=== PATIENT | female | born 1960 | race African-American/Black ===

== ENCOUNTER 2017-05-18 10:55 | Inpatient (IN) | payer OTHER, MEDICARE ==
[~2017-05-18] VITALS: Ht 162.6 cm; Wt 87.9 kg
[~2017-05-18 10:55] MED LIST: FOLI1TAB4 PO; VITA100T2 PO
[2017-05-18 11:00] VITALS: BP 141/77; PULSE 104; RESP 18; TEMP 98.1; O2SAT 98
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
[2017-05-18 12:56] LABS: AUTOMATED NEUTROPHIL # 2.6 TH/MM3 (1.8-7.7); BASOPHIL # 0.1 TH/MM3 (0-0.2); BASOPHIL % 1.2 % (0.0-2.0); EOSINOPHIL % 0.6 % (0.0-4.0); HEMATOCRIT 36.7 % (35.0-46.0); HEMO FLAGS DIFF FINAL; LYMPH % 35.6 % (9.0-44.0); LYMPHOCYTE # 1.6 TH/MM3 (1.0-4.8); MEAN CELL VOLUME 98.7 FL (80.0-100.0); MEAN CORPUSCULAR HEMOGLOBIN 32.6 PG (27.0-34.0); MONO % 6.2 % (0.0-8.0); NEUT % 56.4 % (16.0-70.0); PLATELET COUNT 297 TH/MM3 (150-450); RED BLOOD COUNT 3.72 MIL/MM3 (4.00-5.30); RED CELL DISTRIBUTION WIDTH 13.9 % (11.6-17.2); WHITE BLOOD COUNT 4.6 TH/MM3 (4.0-11.0)
[2017-05-18 13:18] LABS: ANION GAP 12 MEQ/L (5-15); AST (GOT) 44 U/L (15-37); BICARBONATE 21.3 MEQ/L (21.0-32.0); BLOOD UREA NITROGEN 18 MG/DL (7-18); CHLORIDE 106 MEQ/L (98-107); GLOMERULAR FILTRATION RATE 99 ML/MIN (>89); POTASSIUM 4.1 MEQ/L (3.5-5.1); SODIUM (NA) 139 MEQ/L (136-145)
[2017-05-18 13:22] LABS: ALKALINE PHOSPHATASE 67 U/L (45-117); ALT (GPT) 43 U/L (10-53); TOTAL BILIRUBIN ADULT 0.5 MG/DL (0.2-1.0)
[2017-05-18 13:27] LABS: ALCOHOL 135 MG/DL (0-5)
[2017-05-18 15:15] VITALS: BP 167/92; PULSE 105; RESP 20; TEMP 98.9; O2SAT 100
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
[2017-05-18 18:08] VITALS: BP 155/84; PULSE 94; RESP 18; TEMP 97.9; O2SAT 99
[2017-05-19 05:54] VITALS: BP 166/94; PULSE 74; RESP 18; TEMP 98.3; O2SAT 98
[2017-05-19] MEDS: FOLIC ACID 1 MG TAB PO SCH (08:55)
[2017-05-19] MEDS: THIAMINE HCL 100 MG TAB PO SCH (08:55)
--- NOTE | 2017-05-19 15:35 | HHI.PYPN ---
Subjective Remarks Patient seen, chart reviewed and case discussed with nursing. She remains easily agitated and appears paranoid. Review of Systems Except as stated in HPI: all other systems reviewed are Neg Objective Alert: Yes [place]: Person, Place Mood: Anxious Affect: Blunted Memory Intact: Immediate, Recent, Remote Hallucinations: Other Delusions: Yes Delusion Type: Paranoid, Other Suicidal: Ideation (no) Homicidal: Ideation (no) Insight/Judgment Impaired Vitals/IOs Vital Signs Date Time Temp Pulse Resp B/P (MAP) Pulse Ox O2 Delivery O2 Flow Rate FiO2 05/19/17 05:54 98.3 74 18 166/94 (118) 98 05/18/17 15:15 Room Air Intake and Output 05/19/17 05/19/17 05/19/17 07:59 15:59 23:59 Intake Total 480 ml Balance 480 ml Assessment & Plan Problem List: (1) Alcohol abuse with intoxication ICD Codes: F10.129 - Alcohol abuse with intoxication, unspecified (2) Paranoid type schizophrenia, chronic state ICD Codes: F20.0 - Paranoid schizophrenia Assessment & Plan Estimated LOS: days continue medication regimen started by admitting physician. Justification for Cont. Inpt. Unable to care for self. Request HC Surrog/Guard Advoc?: No Darvin Richter MD May 19, 2017 15:35
--- NOTE | 2017-05-19 15:59 | HHI.PYPN ---
Subjective Remarks Patient seen, chart reviewed and labs reviewed. Case discussed with nursing staff. She is somewhat more calm today. Remains paranoid. Review of Systems Except as stated in HPI: all other systems reviewed are Neg Objective Alert: Yes [place]: Person, Place Mood: Anxious Affect: Blunted Memory Intact: Immediate, Recent, Remote Hallucinations: Other Delusions: Yes Delusion Type: Paranoid, Other Suicidal: Ideation (no) Homicidal: Ideation (no) Insight/Judgment Impaired Vitals/IOs Vital Signs Date Time Temp Pulse Resp B/P (MAP) Pulse Ox O2 Delivery O2 Flow Rate FiO2 05/19/17 05:54 98.3 74 18 166/94 (118) 98 05/18/17 15:15 Room Air Intake and Output 05/19/17 05/19/17 05/19/17 07:59 15:59 23:59 Intake Total 480 ml Balance 480 ml Assessment & Plan Problem List: (1) Alcohol abuse with intoxication ICD Codes: F10.129 - Alcohol abuse with intoxication, unspecified (2) Paranoid type schizophrenia, chronic state ICD Codes: F20.0 - Paranoid schizophrenia Assessment & Plan Estimated LOS: days will continue current medication regimen and evaluate for efficacy versus tolerability. Justification for Cont. Inpt. Unable to care for self at this time. Request HC Surrog/Guard Advoc?: No Darvin Richter MD May 19, 2017 15:59
[2017-05-19 18:20] VITALS: BP 164/77; PULSE 72; RESP 16; TEMP 97.7; O2SAT 100
[2017-05-19] MEDS: risperiDONE 1 MG TAB PO SCH (22:11)
[2017-05-20 06:17] VITALS: BP 134/72; PULSE 73; RESP 17; TEMP 97.6; O2SAT 100
[2017-05-20] MEDS: FOLIC ACID 1 MG TAB PO SCH (09:05)
[2017-05-20] MEDS: risperiDONE 1 MG TAB PO SCH ×2 (09:05→21:44)
[2017-05-20] MEDS: THIAMINE HCL 100 MG TAB PO SCH (09:05)
[2017-05-20] MEDS ORDERED: LORazepam 2 MG TAB PO PRN (13:00)
[2017-05-20] MEDS ORDERED: LORazepam 1 MG TAB PO PRN (13:00)
[2017-05-20] MEDS ORDERED: LORazepam 2 MG/ML VIAL IV PUSH PRN ×4 (13:00)
[2017-05-20] MEDS ORDERED: FLUMAZENIL 0.5 MG/5 ML VIAL IV PUSH PRN (13:00)
--- NOTE | 2017-05-20 13:01 | HHI.PYPN ---
Subjective Remarks Patient seen and examined with nurse. Chart reviewed. Case discussed with nursing staff. I note that Dr. Maya started a petition for involuntary psychiatric hospitalization. On my exam, patient presents as paranoid. She displays some neologisms. She denies AVH but appears internally stimulated. Denies SI/HI but seems unreliable to contract for safety. Paranoid regarding computers and someone named Mr. Chu. Denies withdrawal symptoms. Denies side effects from medications. No physical complaints. Review of Systems ROS Limitations: Psychotic, Poor Historian Except as stated in HPI: all other systems reviewed are Neg Objective Alert: Yes [place]: Person, Place Mood: Calm Affect: Blunted (tending toward flat) Memory Intact: Comment (Not formally assessed) Hallucinations: Other (Denies AVH but appears int stim) Delusions: Yes Delusion Type: Paranoid Suicidal: Ideation (Denies SI) Homicidal: Ideation (Denies HI) Insight/Judgment Poor Remarks No motor abnormalities noted. No signs of withdrawal noted. No hand tremor, no tongue fasciculations, no mydriasis, no diaphoresis. Thought process fairly linear within delusional system. Labs Labs reviewed. Vitals/IOs Vital Signs Date Time Temp Pulse Resp B/P (MAP) Pulse Ox O2 Delivery O2 Flow Rate FiO2 05/20/17 06:17 97.6 73 17 134/72 (92) 100 05/18/17 15:15 Room Air Intake and Output 05/20/17 05/20/17 05/21/17 08:00 16:00 00:00 Intake Total 240 ml 240 ml Balance 240 ml 240 ml Assessment & Plan Problem List: (1) Paranoid type schizophrenia, chronic state ICD Codes: F20.0 - Paranoid schizophrenia (2) Alcohol abuse with intoxication ICD Codes: F10.129 - Alcohol abuse with intoxication, unspecified Assessment & Plan Titrate Risperdal to 1.5 mg twice daily for management of psychosis. Add CIWA scale with Ativan. Seizure and fall precautions. Given the circumstances of the patient's presentation here and her presentation on my examination today, I concur with Dr. Maya that the patient meets criteria for involuntary psychiatric hospitalization under the Goldstein act. I have completed the second opinion paperwork. Justification for Cont. Inpt. Med changes. Impairment in reality construction. Risk for decompensation and less restrictive environment. Discharge Planning Per Dr. Maya. Request HC Surrog/Guard Advoc?: No Scott Pascual MD May 20, 2017 13:01
[2017-05-20] MEDS ORDERED: PILL SPLITTER OTHER PRN (13:30)
[2017-05-20 18:25] VITALS: BP 160/78; PULSE 80; RESP 18; TEMP 97.9; O2SAT 94
[2017-05-21 06:07] VITALS: BP 131/73; PULSE 73; RESP 17; TEMP 97.9; O2SAT 100
[2017-05-21] MEDS: risperiDONE 1 MG TAB PO SCH ×2 (09:02→21:10)
[2017-05-21] MEDS: THIAMINE HCL 100 MG TAB PO SCH (09:02)
[2017-05-21] MEDS: FOLIC ACID 1 MG TAB PO SCH (09:02)
--- NOTE | 2017-05-21 12:15 | HHI.PYPN ---
Subjective Remarks Patient seen in [place] with nurse Pavel, chart review, patient compliant medication. Patient is somewhat elevated mood today intense and somewhat intrusive. Wishes less irritable and paranoid and was seen by me over the weekend She denies voices, or visions. Denies suicidality. For now continue treatment Review of Systems Except as stated in HPI: all other systems reviewed are Neg Objective Alert: Yes [place]: Person, Place Mood: Calm Affect: Blunted (tending toward flat) Memory Intact: Comment (Not formally assessed) Hallucinations: Other (Denies AVH but appears int stim) Delusions: Yes Delusion Type: Paranoid Suicidal: Ideation (Denies SI) Homicidal: Ideation (Denies HI) Insight/Judgment Poor Vitals/IOs Vital Signs Date Time Temp Pulse Resp B/P (MAP) Pulse Ox O2 Delivery O2 Flow Rate FiO2 05/21/17 06:07 97.9 73 17 131/73 (92) 100 05/18/17 15:15 Room Air Assessment & Plan Problem List: (1) Paranoid type schizophrenia, chronic state ICD Codes: F20.0 - Paranoid schizophrenia (2) Alcohol abuse with intoxication ICD Codes: F10.129 - Alcohol abuse with intoxication, unspecified Assessment & Plan Estimated LOS: days patient continue somewhat vigilant psychotic with elevated mood today. Compliant medications Justification for Cont. Inpt. At this time patient will decompensate if placed in a lower level of care Discharge Planning To be determined Request HC Surrog/Guard Advoc?: No Wilfred Maya MD May 21, 2017 12:15
[2017-05-21 18:00] VITALS: BP 146/76; PULSE 90; RESP 18; TEMP 98.2; O2SAT 100
[2017-05-22 06:05] VITALS: BP 119/84; PULSE 85; RESP 18; TEMP 97; O2SAT 96
[2017-05-22] MEDS: FOLIC ACID 1 MG TAB PO SCH (09:08)
[2017-05-22] MEDS: THIAMINE HCL 100 MG TAB PO SCH (09:08)
[2017-05-22] MEDS: risperiDONE 1 MG TAB PO SCH ×2 (09:08→21:16)
--- NOTE | 2017-05-22 13:59 | HHI.PYPN ---
Subjective Remarks Patient seen in [facility] the floor staff, chart reviewed, patient compliant medication. Patient continues confused delusional somewhat elevated mood. There is a subtle spirituality which is stating also. Will increase Respinol to 2 mg twice a day Review of Systems Except as stated in HPI: all other systems reviewed are Neg Objective Alert: Yes [place]: Person, Place Mood: Calm Affect: Blunted (tending toward flat) Memory Intact: Comment (Not formally assessed) Hallucinations: Other (Denies AVH but appears int stim) Delusions: Yes Delusion Type: Paranoid Suicidal: Ideation (Denies SI) Homicidal: Ideation (Denies HI) Insight/Judgment Very poor Vitals/IOs Vital Signs Date Time Temp Pulse Resp B/P (MAP) Pulse Ox O2 Delivery O2 Flow Rate FiO2 05/22/17 06:05 97.0 85 18 119/84 (96) 96 05/18/17 15:15 Room Air Assessment & Plan Problem List: (1) Paranoid type schizophrenia, chronic state ICD Codes: F20.0 - Paranoid schizophrenia (2) Alcohol abuse with intoxication ICD Codes: F10.129 - Alcohol abuse with intoxication, unspecified Assessment & Plan Estimated LOS: days patient continue psychotic and delusional, she medication adjustment above Justification for Cont. Inpt. At this time patient will decompensate if placed in the lower level of care Discharge Planning To be determined Request HC Surrog/Guard Advoc?: No Wilfred Maya MD May 22, 2017 13:59
[2017-05-22] MEDS ORDERED: MAGNESIUM HYDROXIDE SUSP 30 ML CUP PO PRN (15:00)
[2017-05-22] MEDS ORDERED: ALUMINUM/MAGNESIUM/SIMETH 30 ML CUP PO PRN (15:00)
[2017-05-22 18:00] VITALS: BP 137/62; PULSE 82; RESP 18; TEMP 98.1; O2SAT 99
[2017-05-23 05:41] VITALS: BP 123/85; PULSE 110; RESP 17; TEMP 97.7; O2SAT 100
[2017-05-23] MEDS: FOLIC ACID 1 MG TAB PO SCH (09:07)
[2017-05-23] MEDS: THIAMINE HCL 100 MG TAB PO SCH (09:08)
[2017-05-23] MEDS: risperiDONE 1 MG TAB PO SCH ×2 (09:09→21:34)
--- NOTE | 2017-05-23 13:34 | HHI.PYPN ---
Subjective Remarks Patient seen in [facility] with nurse Pema, patient continues somewhat intrusive loud and grandiose, compliant medications. Denying voices or visions of suicidality. She states she still willing to back to Mr. salemron half-way. For now continue treatment Review of Systems Except as stated in HPI: all other systems reviewed are Neg Objective Alert: Yes [place]: Person, Place Mood: Calm Affect: Blunted (tending toward flat) Memory Intact: Comment (Not formally assessed) Hallucinations: Other (Denies AVH but appears int stim) Delusions: Yes Delusion Type: Paranoid Suicidal: Ideation (Denies SI) Homicidal: Ideation (Denies HI) Insight/Judgment Poor Vitals/IOs Vital Signs Date Time Temp Pulse Resp B/P (MAP) Pulse Ox O2 Delivery O2 Flow Rate FiO2 05/23/17 05:41 97.7 110 17 123/85 (98) 100 Intake and Output 05/23/17 05/23/17 05/24/17 08:00 16:00 00:00 Intake Total 960 ml Balance 960 ml Assessment & Plan Problem List: (1) Paranoid type schizophrenia, chronic state ICD Codes: F20.0 - Paranoid schizophrenia (2) Alcohol abuse with intoxication ICD Codes: F10.129 - Alcohol abuse with intoxication, unspecified Assessment & Plan Estimated LOS: days patient continues somewhat grandiose, with loud rapid speech. Compliant medication. For now continue treatment Justification for Cont. Inpt. At this time patient will decompensate if not placed in an appropriate level of care Discharge Planning To be determined Request HC Surrog/Guard Advoc?: No Wilfred Maya MD May 23, 2017 13:34
[2017-05-23 17:04] VITALS: BP 136/81; PULSE 71; RESP 18; TEMP 98.7; O2SAT 100
[2017-05-24 06:08] VITALS: BP 110/69; PULSE 92; RESP 16; TEMP 96.9; O2SAT 100
[2017-05-24] MEDS: risperiDONE 1 MG TAB PO SCH (08:25)
[2017-05-24] MEDS: FOLIC ACID 1 MG TAB PO SCH (08:25)
[2017-05-24] MEDS: THIAMINE HCL 100 MG TAB PO SCH (08:25)
[2017-05-24] MEDS ORDERED: RISP2TAB37 PO (14:39)
[2017-05-24] MEDS ORDERED: FOLI1TAB6 PO (14:39)
[2017-05-24] MEDS ORDERED: GNP100TA3 PO (14:39)
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
== END 2017-05-24 19:05 | disposition home or self-care (01) | DRG 885 ==
LOC: NEPD 10:55 → NEDA 15:38 → H270 18:05 → H260 05-19 10:45
PROVIDERS: ADMIT Psychiatry & Neurology Psychiatry; ATTEND Psychiatry & Neurology Psychiatry
DX: F20.0 Paranoid schizophrenia (principal); I10 Essential (primary) hypertension; F41.9 Anxiety disorder, unspecified; F10.129 Alcohol abuse with intoxication, unspecified; Y90.6 Blood alcohol level of 120-199 mg/100 ml
CPT/HCPCS: 73120; 80053; 80307; 85025; 99285